=== PATIENT | male | born 1950 | race Caucasian/White ===

== ENCOUNTER 2016-08-24 13:20 | Emergency (ER) | payer MEDICAID ==
[~2016-08-24] VITALS: Ht 175.3 cm; Wt 69.5 kg
[2016-08-24 14:02] VITALS: Ht 175.3 cm; Wt 69.5 kg
[2016-08-24] MEDS ORDERED: IPRATROPIUM (NEB) 0.5 MG/2.5 ML AMP HHN ONE (16:30)
[2016-08-24] MEDS ORDERED: ALBUTEROL 0.083% (NEB) 2.5 MG/3 ML AMP HHN ONE (16:30)
--- NOTE | 2016-08-24 16:30 | ERD ---
ER Documentation Chief Complaint Date/Time DATE: 08/24/16 TIME: 16:27 Chief Complaint apt with asthma , SOB 1 month HPI Patient is a 65-year-old male who presents the ED for cough and shortness of breath for 3 months. He states he has had a dry cough. He also complains of runny nose. He denies chest pain or difficulty breathing. Denies headache or dizziness. He denies leg pain or swelling or recent travel. He denies abdominal pain, nausea, vomiting or diarrhea. He does have a history of asthma and has been using his albuterol with minimal relief. He states his cough and SOB is similar to his asthma exacerbations he has had in the past. He denies fever or chills. He denies hemoptysis, productive cough, night sweats. He denies fever or chills. He denies cardiac disease. ROS All systems reviewed and are negative except as per history of present illness. Medications Home Meds Active Scripts Albuterol Sulfate* (Proair HFA*) 8.5 Gm Hfa.aer.ad, 2 PUFF INH Q4, #1 INHALER Prov:SRIKANTH RODRIGUEZ PA-C 08/24/16 Prednisone* (Prednisone*) 20 Mg Tab, 40 MG PO DAILY for 4 Days, TAB Prov:SRIKANTH RODRIGUEZ PA-C 08/24/16 Allergies Allergies: Coded Allergies: Penicillins (Verified Allergy, Mild, 08/24/16) aspirin (Verified Allergy, Mild, 08/24/16) sulfamethoxazole (Verified Allergy, Mild, 08/24/16) trimethoprim (Verified Allergy, Mild, 08/24/16) Uncoded Allergies: SULFA (Allergy, Unknown, 08/24/16) PMhx/Soc Hx Respiratory Disorders: Yes (ASTHMA) Hx Miscellaneous Medical Probl: Yes (HERNIA) Hx Alcohol Use: No Hx Substance Use: No Hx Tobacco Use: No Smoking Status: Former smoker FmHx Family History: No coronary disease, No diabetes, No other Physical Exam Vitals Vital Signs Date Time Temp Pulse Resp B/P Pulse Ox O2 Delivery O2 Flow Rate FiO2 08/24/16 17:09 116 18 143/86 96 Room Air 08/24/16 16:40 83 18 95 21 08/24/16 14:02 97.5 87 18 134/85 97 Physical Exam GENERAL: Well-developed, well-nourished male. Appears in no acute distress. HEAD: Normocephalic, atraumatic. ENT: Moist mucous membranes. No uvula deviation. No kissing tonsils. No exudates. NECK: Supple. No lymphadenopathy or thyromegaly. No meningismus. negative kernig. negative brudinski. LUNG: Clear to auscultation bilaterally. No rhonchi, wheezing, rales or coarse breath sounds. HEART: Regular rate and rhythm. No murmurs, rubs or gallops. Extremities: Equal pulses bilaterally. No peripheral clubbing, cyanosis or edema. No unilateral leg swelling. NEUROLOGIC: Alert and oriented. Moving all four extremities. 5/5 strength in all extremities. Normal speech. Steady gait. SKIN: Normal color. Warm and dry. No rashes or lesions. Capillary refill < 2 seconds Results 24 hrs Current Medications Medications (Trade) Dose Ordered Sig/Tremayne Route PRN Reason Start Time Stop Time Status Last Admin Dose Admin Albuterol (Proventil 0.083% (Neb)) 5 mg ONCE ONCE [facility] 08/24/16 16:30 08/24/16 16:31 DC 08/24/16 16:40 Ipratropium Gibbs (Atrovent 0.02% (Neb)) 0.5 mg ONCE ONCE [facility] 08/24/16 16:30 08/24/16 16:31 DC 08/24/16 16:40 Procedures/MDM ER COURSE: I kept the patient and/or family informed of laboratory and diagnostic imaging results throughout the emergency room course. EKG, MONITORS, & DIAGNOSTIC IMAGING: EKG performed, read by Dr Cordero 61 bpm, normal sinus rhythm, normal axis, no acute ST segment changes, no T wave inversion PROCEDURES: RT consult. Atrovent, albuterol patient tolerated medication well and stated improvement in symptoms. MEDICAL DECISION MAKING: This is a 66 year old male who presents with cough x 3 months. Vital signs were reviewed. Patient is afebrile. Patient is not hypoxic. Patient is not toxic or ill appearing. Patient has cough of uncertain etiology versus asthma exacerbation. Patient also has hoarseness and could be related to possible laryngitis. I have low suspicion for cardiac emergencies such as ACS, PE, DVT, AAA, aortic dissection. I have low suspicion for pneumonia, strep pharyngitis, obstruction, sepsis, meningitis. I do not think patient needs blood work as his cardiac heart score is very low and does not warrant further testing. DISCHARGE: Patient is stable for discharge with no new complaints. Patient is stable for outpatient therapy. Patient was sent home with albuterol, prednisone. Patient advised to return to the ED for any worsening symptoms such as fever, LOC, weakness, chest pain. Patient advised to follow up with primary care provider in 1-2 days for recheck and further evaluation. Patient understands and agrees with plan. Departure Diagnosis: Primary Impression: Cough Condition: Stable Additional Instructions: Call your primary care doctor TOMORROW for an appointment during the next 1-2 days.See the doctor sooner or return here if your condition worsens before your appointment time. SRIKANTH RODRIGUEZ PA-C Aug 24, 2016 16:30
--- NOTE | 2016-08-24 16:57 | RADRPT ---
PROCEDURE: XR Chest. CLINICAL INDICATION: Cough for 3 months. TECHNIQUE: AP view of the chest was obtained. COMPARISON: None available. FINDINGS: The cardiomediastinal silhouette is within normal limits. There is a hazy opacification in the left lower lung zone adjacent to the left cardiac border, with suggestion of air-fluid level suggesting h iatal hernia. No signs of pleural fluid or pneumothorax are seen. The osseous structures and soft ti ssues are unremarkable. IMPRESSION: 1. No evidence for active cardiopulmonary disease. 2. Probable hiatal hernia with airfluid level in the left lower hemithorax. RPTAT: HGAS .Chaitanya Zacarias MD, MD Date Time Electronically viewed and signed by .Chaitanya Zacarias MD, on 08/24/2016 16:57 .S/
[2016-08-24 17:09] VITALS: BP 143/86; PULSE 116; RESP 18
[2016-08-24] MEDS ORDERED: PRED20TA PO (17:35)
[2016-08-24] MEDS ORDERED: ALBU8.5H3 INH (17:35)
== END 2016-08-24 17:48 | disposition home or self-care (01) ==
LOC: EDBD → FTE 13:20
DX: R05 Cough (principal); J45.909 Unspecified asthma, uncomplicated; R06.02 Shortness of breath; Z87.891 Personal history of nicotine dependence
CPT/HCPCS: 71010; 93005; 94664; Z7610

== ENCOUNTER 2016-08-28 12:23 | Emergency (ER) | payer MEDICAID ==
[~2016-08-28] VITALS: Wt 70.5 kg
[~2016-08-28 12:23] MED LIST: ALBU8.5H3 INH; PRED20TA PO
[2016-08-28] MEDS ORDERED: predniSONE 20 MG TAB PO ONE (14:00)
[2016-08-28] MEDS ORDERED: ALBU18HF INHALATION (14:03)
[2016-08-28] MEDS ORDERED: PRED20TA PO (14:03)
[2016-08-28] MEDS ORDERED: AZIT250T94 PO (14:03)
--- NOTE | 2016-08-28 14:07 | ERD ---
ER Documentation Chief Complaint Date/Time DATE: 08/28/16 TIME: 14:05 Chief Complaint COUGH, SOB, CONGESTION, HX OF ASTHMA HPI 65-year-old male remote history of smoking and asthma who presents with cough and congestion. Patient describes approximate 1 week of symptoms. The patient was seen here several days ago and given steroids. He states that he ran out of the medications and has persistent symptoms. He denies any chest pain, no dyspnea on exertion. He states this feels very similar to his asthma. No fevers or chills or respiratory distress. The patient needs a refill of his inhaler as well. ROS All systems reviewed and are negative except as per history of present illness. Medications Home Meds Active Scripts Azithromycin* (Zithromax*) 250 Mg Tablet, 250 MG PO .ZPACK DIRECTED, #6 TAB TAKE 500 MG (2 TABS) THE FIRST DAY THEN 250 MG (1 TAB) DAYS 2-5 Prov:LAKSHMI VOGEL MD 08/28/16 Prednisone* (Prednisone*) 20 Mg Tab, 40 MG PO DAILY for 4 Days, TAB Prov:LAKSHMI VOGEL MD 08/28/16 Albuterol Sulfate* (Ventolin HFA*) 18 Gm Hfa.aer.ad, 2 PUFF INHALATION Q4H, #2 INHALER Prov:LAKSHMI VOGEL MD 08/28/16 Albuterol Sulfate* (Proair HFA*) 8.5 Gm Hfa.aer.ad, 2 PUFF INH Q4, #1 INHALER Prov:SRIKANTH RODRIGUEZ PA-C 08/24/16 Prednisone* (Prednisone*) 20 Mg Tab, 40 MG PO DAILY for 4 Days, TAB Prov:SRIKANTH RODRIGUEZ PA-C 08/24/16 Allergies Allergies: Coded Allergies: Penicillins (Verified Allergy, Mild, 08/28/16) aspirin (Verified Allergy, Mild, 08/28/16) sulfamethoxazole (Verified Allergy, Mild, 08/28/16) trimethoprim (Verified Allergy, Mild, 08/28/16) Uncoded Allergies: SULFA (Allergy, Unknown, 08/24/16) PMhx/Soc Hx Respiratory Disorders: Yes (ASTHMA) Hx Miscellaneous Medical Probl: Yes (HERNIA) Hx Alcohol Use: No Hx Substance Use: No Hx Tobacco Use: No Smoking Status: Former smoker FmHx Family History: No diabetes Physical Exam Vitals Vital Signs Date Time Temp Pulse Resp B/P Pulse Ox O2 Delivery O2 Flow Rate FiO2 08/28/16 12:26 98.0 72 18 148/90 97 Physical Exam General: Well developed, well nourished, no acute distress Head: Normocephalic, atraumatic. Eyes: Pupils equally reactive, EOM intact ENT: Moist mucous membranes Neck: Supple, no lymphadenopathy Respiratory: Scant wheezing but good aeration Cardiovascular: RRR, no murmurs, rubs, or gallops Abdominal: Soft, non-tender, non-distended, no peritoneal signs : Deferred MSK: No edema, no unilateral swelling, 5/5 strength Neurologic: Alert and oriented, moving all extremities, normal speech, no focal weakness, no cerebellar signs Skin: No rash Psych: Normal mood Results 24 hrs Current Medications Medications (Trade) Dose Ordered Sig/Tremayne Route PRN Reason Start Time Stop Time Status Last Admin Dose Admin Prednisone (Prednisone) 60 mg ONCE ONCE PO 08/28/16 14:00 08/28/16 14:01 DC 08/28/16 14:02 Procedures/MDM The patient's clinical presentation is very consistent with an acute viral syndrome that is possibly triggering the patient's COPD versus asthma with exacerbation. The patient had a chest x-ray approximately 2 days ago that was normal. The patient has no significant respiratory distress and no hypoxia, no fever. However, given the patient's age and persistence of symptoms I believe the patient would benefit from prolonged course of steroids as well as azithromycin. The patient's inhaler will be refilled. First dose of steroid given in the emergency department The patient is otherwise well-appearing in no respiratory distress without fever hypoxia. Outpatient management is appropriate. The patient does not exhibit any clinical signs or symptoms concerning for serious bacterial infection or systemic illness. Based on history and clinical exam findings the patient does not appear to have evidence of pneumonia, strep pharyngitis, urinary tract infection, bacteremia, sepsis, or meningitis. For these reasons I do not believe it is necessary to obtain laboratory testing or diagnostic imaging. I believe it would be appropriate for symptom control, and close outpatient primary care follow-up. We discussed follow up with the patient's primary care doctor within 24 to 48 hours as needed. We also discussed return to the emergency room for worsening symptoms or worsening condition. Discharge Medications: Prednisone, azithromycin, Ventolin Departure Diagnosis: Primary Impression: Cough Additional Impression: COPD with exacerbation Condition: Stable Patient Instructions: Acute Bronchitis Ref[facility] Usted se wells hecho un examen mdico de control que le indica que no est en agustin condicin que requiera tratamiento urgente en el Departamento de Emergencia. Un estudio ms profundo y el tratamiento de gonzalez condicin pueden esperar sin ningn riesgo hasta que usted sea atendida/o en el consultorio de gonzalez mdico o agustin cl richard. Es responsabilidad suya arreglar agustin racheal para el seguimiento del peng. MANEJO DE CONDICIONES NO URGENTES EN EL FUTURO 1) Si usted tiene un mdico de atencin primaria: Usted debera llamar a gonzalez mdico de atencin primaria antes de venir al departamento de emergencia. Despus de las horas de consultorio, gonzalez doctor o gonzalez asociado/a est disponible por telfono. El mdico o enfermero de martita en el servicio telefnico puede asesorarle por ignacia medio para atender el problema, o peng contrario se puede programar agustin racheal. 2) Si usted no tiene un mdico de atencin primaria: Llame al mdico o clnica de referencia que aparece abajo palak las horas de consultorio para hacer agustin racheal para que le vean. CLINICAS: [facility] [phone] [facility] [phone] [facility] [phone] [facility]. [place] [id number] [phone] [facility]. [place] [id number] [phone] [facility]. [phone] [place] [address]. [facility] () Rasheed se wells hecho un examen mdico de control que le indica que no est en agustin condicin que requiera tratamiento urgente en el Departamento de Emergencia. Un estudio ms profundo y el tratamiento de gonzalez condicin pueden esperar sin ningn riesgo hasta que usted sea atendida/o en el consultorio de gonzalez mdico o agustin cl richard. Es responsabilidad suya arreglar agustin racheal para el seguimiento del peng. MANEJO DE CONDICIONES NO URGENTES EN EL FUTURO 1) Si usted tiene un mdico de atencin primaria: Rasheed debera llamar a gonzalez mdico de atencin primaria antes de venir al departamento de emergencia. Despus de las horas de consultorio, gonzalez doctor o gonzalez asociado/a est disponible por telfono. El mdico o enfermero de martita en el servicio telefnico puede asesorarle por ignacia medio para atender el problema, o peng contrario se puede programar agustin racheal. 2) Si usted no tiene un mdico de atencin primaria: Llame al mdico o condado institucions de referencia que aparece abajo palak las horas de consultorio para hacer agustin racheal para que le vean. SI USTED NO PUEDE PAGAR PARA GAIL UN MEDICO puede ir a: [facility] [address] [place] [address] [facility] [address] [place] [address] [facility] [address] [place] [address] PARA [facility] [address] [place] [address] Additional Instructions: Llame al doctor nombrado abajo (Referral Sources) MAANA y sybil agustin RACHEAL PARA DENTRO DE AGUSTIN SEMANA. Dgale a la secretaria que nosotros le instruimos hacer esta racheal.Avise o llame si gonzalez condicin se empeora antes de la racheal. LAKSHMI VOGEL MD Aug 28, 2016 14:07
== END 2016-08-28 14:32 | disposition home or self-care (01) ==
LOC: FTE 12:23
DX: R05 Cough (principal); J44.1 Chronic obstructive pulmonary disease with (acute) exacerbation; Z87.891 Personal history of nicotine dependence
CPT/HCPCS: 99284; J7512

== ENCOUNTER 2017-11-01 17:07 | Emergency (ER) | END 2017-11-01 17:50 | disposition home or self-care (01) ==

== ENCOUNTER 2017-12-19 07:21 | Emergency (ER) | END 2017-12-19 07:52 | disposition home or self-care (01) ==